=== PATIENT | female | born 1975 | race Caucasian/White ===

== ENCOUNTER 2016-10-23 17:27 | Emergency (ER) | payer OTHER, BC ==
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
[~2016-10-23 17:27] MED LIST: BIRTH CONTROL PILL; CALCIUM + VITAM1 TAB PO; CRANBERRY200 MG PO; DAILY VALUE1 EACH PO; LORTAB 7.5-5001 TAB PO; ORTHO TRI-7 DAYSX 3 PO; PHENERGAN25 MG PO
[2017-02-14] MEDS ORDERED: NEXIUM20 MG PO (11:17)
[2017-02-14] MEDS ORDERED: ZOFRAN8 MG PO (11:18)
[2017-02-14] MEDS ORDERED: HYDROCODON-ACE1 EAC7 PO (11:19)
[2017-02-14] MEDS ORDERED: TRINESSA LO TA1 EACH PO (11:19)
== END 2016-10-23 18:21 | disposition home or self-care (01) ==
LOC: SED 17:27
DX: S00.212A Abrasion of left eyelid and periocular area, initial encounter (principal); V49.40XA Driver injured in collision with unspecified motor vehicles in traffic accident, initial encounter; Y92.410 Unspecified street and highway as the place of occurrence of the external cause
CPT/HCPCS: 36415; 70450; 90471; 90715; 97602; 99284

== ENCOUNTER 2017-01-06 15:14 | Emergency (ER) | payer BC ==
--- NOTE | ~2017-01-06 | CT2 ---
[facility] A Service of [facility] RADIOLOGY TEXT RESULTS PATIENT: TIKA CUMMINGS LOCATION: [facility] : [birth year] UNIT #: [id number] AGE: [address]: Alyssa Rowland MD SEX: F ORDER DR: [id number] [facility] [address] [place], [place] [address] [id number] E MR#: [id number] Acc #: [id number] NAME: TIKA CUMMINGS : 1975 SEX: F STUDY DATE/TIME: 01/06/2017 17:27 UNIT: [facility] ROOM: STUDY DESCRIPTION: CT Abd and Pelv W Cont Attending Physician: Alyssa Rowland M.D. Ordering Physician: Alyssa Rowland M.D. Primary Care Physician: Luz Maria Mccoy M.D. MEDICAL IMAGING REPORT This report is preliminary unless electronic signature is present EXAM CT scan of the abdomen and pelvis with contrast, 01/06/2017 HISTORY Abdomen pain and dizziness for 4 days, epigastric pain. TECHNIQUE Spiral CT was performed through the abdomen and pelvis following intravenous contrast administration only as per clinician request. This CT exam was performed with one or more of the following radiation dose reduction techniques: automatic exposure control, adjustment of mA and/or kV according to patient size, and iterative reconstruction. FINDINGS ABDOMEN: The exam is limited by the lack of oral contrast. The liver, spleen, pancreas, gallbladder and biliary tree, adrenal glands and kidneys are normal. PELVIS FINDINGS: The gut, mesenteric and renetta structures are normal. There is minimal free fluid in the pelvis. The lung bases are normal. IMPRESSION Exam somewhat limited by the lack of oral contrast. Otherwise negative. Dictated by... Riley Barahona M.D. THIS IS AN ELECTRONICALLY VERIFIED REPORT Riley Barahona M.D. at 01/07/2017 10:38 AM CESIA/tim [facility] A Service of [facility] RADIOLOGY TEXT RESULTS PATIENT: TIKA CUMMINGS LOCATION: [facility] : [birth year] UNIT #: [id number] AGE: [address]: Alyssa Rowland MD SEX: F ORDER DR: TD: 01/07/2017 03:44 JOB #: [id number] MEDICAL IMAGING REPORT Page 1 of 1 COPY
[2017-01-06 15:39] LABS: BASOPHIL% 0.4 % (0-2.5); EOSINOPHIL# 0.1 X10e3 (0-0.7); EOSINOPHIL% 0.6 % (0.0-7.0); HEMATOCRIT 44.3 % (35.0-45.0); HEMOGLOBIN 14.6 gm/dL (12.0-16.0); LYMPHOCYTE# 2.7 X10e3 (1.0-3.5); LYMPHOCYTE% 25.6 % (17.0-45.0); MEAN CELL VOLUME 90.3 FL (83-96); MEAN CORPUSCULAR HEMOGLOBIN 29.7 PG (28-34); MEAN CORPUSCULAR HGB CONC 32.9 g/dL (30-36); MEAN PLATELET VOLUME 9.5 FL (6.5-11.5); MONOCYTE# 0.6 X10e3 (0-1.0); MONOCYTE% 6.1 % (3.0-12.0); NEUTROPHIL# 7.1 X10e3 (1.5-7.1); NEUTROPHIL% 67.3 % (40-75); PLATELET COUNT 298 X10e3 (140-420); RED CELL DISTRIBUTION WIDTH 12.9 % (11.0-15.5); WHITE BLOOD COUNT 10.6 X10e3 (4.0-10.5)
[2017-01-06 15:41] LABS: DIFF IND NO
[2017-01-06 15:52] LABS: URINE SOURCE CLEAN CATCH
[2017-01-06 16:03] LABS: URINE APPEARANCE CLEAR; URINE BILIRUBIN NEG (NEG); URINE BLOOD TRACE (NEG); URINE COLOR YELLOW; URINE GLUCOSE NEG (NEG); URINE KETONE TRACE (NEG); URINE LEUKOCYTE ESTERASE TRACE (NEG); URINE NITRATE NEG (NEG); URINE PH 5.5 (5-8); URINE PROTEIN NEG (NEG); URINE SPECIFIC GRAVITY 1.024 (1.003-1.035)
[2017-01-06 16:06] LABS: CULTURE INDICATED? YES; URINE BACTERIA AUWI 1+ (NEGATIVE); URINE SQUAMOUS EPITHELIAL CELL FEW /[HPF]
[2017-01-06 16:09] LABS: ALBUMIN SERUM 4.7 g/dL (3.5-5.0); BILIRUBIN, DIRECT 0.1 mg/dL (0.0-0.2); BILIRUBIN,INDIRECT 0.5 mg/dL (0.0-0.9); BILIRUBIN,TOTAL 0.6 mg/dL (0.2-2.0); BUN/CREATININE RATIO 11.11; CALCIUM SERUM 9.4 mg/dL (8.4-10.2); CREATININE SERUM 0.9 mg/dL (0.6-1.4); GLOM FILT RATE Estimated 80.6 mL/min (>60); POTASSIUM 3.1 mmol/L (3.5-5.1); PROTEIN TOTAL SERUM 8.5 g/dL (6.0-8.3)
[2017-02-14] MEDS ORDERED: NEXIUM20 MG PO (11:17)
[2017-02-14] MEDS ORDERED: ZOFRAN8 MG PO (11:18)
[2017-02-14] MEDS ORDERED: HYDROCODON-ACE1 EAC7 PO (11:19)
[2017-02-14] MEDS ORDERED: TRINESSA LO TA1 EACH PO (11:19)
== END 2017-01-06 20:22 | disposition home or self-care (01) ==
LOC: CED 15:14
PROVIDERS: Emergency Medicine
DX: K85.90 Acute pancreatitis without necrosis or infection, unspecified (principal); E87.6 Hypokalemia; Z90.49 Acquired absence of other specified parts of digestive tract
CPT/HCPCS: 36415; 74177; 80048; 80076; 81003; 82150; 83690; 84703; 85025; 87086; 96361; 96374; 99284; J2270; Q9967

== ENCOUNTER → 2017-01-17 | Outpatient (CLI) | payer BC ==
[~2017-01-17] MED LIST changes: +HYDROCODON-ACE1 EAC7 PO; +NEXIUM20 MG PO; +TRINESSA LO TA1 EACH PO; +ZOFRAN8 MG PO
--- NOTE | ~2017-01-17 | US6 ---
[facility] A Service of [facility] RADIOLOGY TEXT RESULTS PATIENT: TIKA CUMMINGS LOCATION: [facility] : 79 UNIT #: [id number] AGE: [address]: Luz Maria Mccoy MD SEX: F ORDER DR: [id number] [address] [address] [id number] O MR#: [id number] Acc #: [id number] NAME: TIKA CUMMINGS : 1975 SEX: F STUDY DATE/TIME: 01/17/2017 8:19 UNIT: [facility] ROOM: STUDY DESCRIPTION: US Abdominal Limited Attending Physician: Luz Maria Mccoy M.D. Referring Physician: Luz Maria Mccoy M.D. Ordering Physician: Luz Maria Mccoy M.D. Primary Care Physician: Luz Maria Mccoy M.D. MEDICAL IMAGING REPORT This report is preliminary unless electronic signature is present. EXAM Right quadrant ultrasound 01/17/2017 INDICATIONS Elevated lipase in a 41-year-old female. Right upper quadrant pain for 4 weeks, nausea for 4 weeks. Sonographic imaging right upper quadrant was performed. COMPARISON STUDIES Correlation is made with CT 01/06/2017 FINDINGS Visualized aspects of the pancreas are unremarkable. Survey images of the liver are unremarkable. No focal liver mass, ascites or intrahepatic ductal dilatation. Liver measures 15.3 cm long axis. The gallbladder is sonographically unremarkable. No sonographic Morales sign was described. Extrahepatic common bile duct measures approximately 2 mm. The right kidney is nonobstructed and measures 9.6 cm long axis. IMPRESSION Negative right upper quadrant. Dictated by... Jose Simpson M.D. THIS IS AN ELECTRONICALLY VERIFIED REPORT Jose Simpson M.D. at 01/20/2017 2:08 PM Jose Daniel TD: 01/17/2017 18:16 JOB #: [id number] [facility] A Service of [facility] RADIOLOGY TEXT RESULTS PATIENT: TIKA CUMMINGS LOCATION: [facility] : [birth year] UNIT #: [id number] AGE: [address]: Luz Maria Mccoy MD SEX: F ORDER DR: MEDICAL IMAGING REPORT Page 1 of 1
== END | disposition home or self-care (01) ==
LOC: SGUS 07:35
DX: R74.8 Abnormal levels of other serum enzymes (principal)
CPT/HCPCS: 76705

== ENCOUNTER → 2017-02-14 | Day surgery (SDC) | payer BC ==
--- NOTE | ~2017-02-14 | OR ---
Unit #: [id number] #: [id number] Patient: TIKA CUMMINGS [id number] [facility]. [place], [place] [address] [id number] O MR#: [id number] NAME: TIKA CUMMINGS ROOM: Date of Procedure: 02/14/2017 Admission Date: 02/14/2017 Surgeon: Abimael Saeed M.D. : 1975 Attending Physician: Abimael Saeed M.D. Referring Physician: Abimael Saeed M.D. Primary Care Physician: Luz Maria Mccoy M.D. OPERATIVE REPORT PREOPERATIVE DIAGNOSES Intense intermittent nausea, poor appetite and weight loss. PROCEDURES PERFORMED Upper gastrointestinal endoscopy. POSTOPERATIVE DIAGNOSES Completely normal examination up to third part of duodenum. The biopsy was obtained from the antrum for CLOtest. In addition, biopsies were also obtained from the deep descending duodenal folds to look for any evidence of partial villous atrophy or celiac disease. RECOMMENDATIONS The above findings do not explain patient's symptomatology. An outpatient gastric emptying study is being scheduled and she will be reviewed shortly thereafter in the office. SEDATION USED MAC. DESCRIPTION OF PROCEDURE Following detailed explanation of the potential risks and complications of an upper endoscopy, namely perforation, bleeding, and complications related to sedation, the patient was brought to GI lab and laid in the left lateral decubitus position. Lubricated tip of the Olympus video upper endoscope was passed through the bite block into the proximal esophagus under direct vision. The entire esophageal mucosa was examined and appeared normal. Z-line was nicely demarcated, there being no esophagitis or hiatus hernia. The scope was then advanced into the gastric cavity and the latter was insufflated. Mucosa of the fundus, body, and antrum examined and appeared unremarkable. Pylorus was intubated with visualization of the normal duodenal bulb and second and third part of the duodenum. Biopsies were obtained from the deep descending duodenal folds to look for any evidence of partial villous atrophy or celiac disease. Upon withdrawal and retroflexion, incisura, cardia, and greater curve were examined and no additional findings noted. A biopsy was obtained from the antrum for CLOtest. The scope was then withdrawn into the distal esophagus. The entire esophageal mucosa was examined all the way up to pharynx. No additional findings noted. The patient tolerated the procedure without any postprocedure complications. Unit #: [id number] #: [id number] Patient: TIKA CUMMINGS Dictated by... Kenneth Bentley/mitch TD: 02/15/2017 00:41 JOB #: [id number] CC: Luz Maria Mccoy M.D. OPERATIVE REPORT Page 1 of 1 X Abimael Saeed MD X PROCEDURE OPERATIVE NOTE
[2017-02-14 12:06] LABS: ALBUMIN SERUM 4.3 g/dL (3.5-5.0); BILIRUBIN,TOTAL 0.4 mg/dL (0.2-2.0); CALCIUM SERUM 9.3 mg/dL (8.4-10.2); CREATININE SERUM 0.9 mg/dL (0.6-1.4); GLOM FILT RATE Estimated 80.6 mL/min (>60); PROTEIN TOTAL SERUM 7.9 g/dL (6.0-8.3)
[2017-02-14 12:55] LABS: BASOPHIL# 0.1 X10e3 (0-0.3); BASOPHIL% 0.8 % (0-2.5); EOSINOPHIL# 0.1 X10e3 (0-0.7); EOSINOPHIL% 1.6 % (0.0-7.0); HEMATOCRIT 40.4 % (35.0-45.0); HEMOGLOBIN 13.4 gm/dL (12.0-16.0); LYMPHOCYTE# 2.1 X10e3 (1.0-3.5); LYMPHOCYTE% 32.1 % (17.0-45.0); MEAN CELL VOLUME 90.6 FL (83-96); MEAN CORPUSCULAR HEMOGLOBIN 30.2 PG (28-34); MEAN CORPUSCULAR HGB CONC 33.3 g/dL (30-36); MEAN PLATELET VOLUME 9.3 FL (6.5-11.5); MONOCYTE# 0.5 X10e3 (0-1.0); MONOCYTE% 7.7 % (3.0-12.0); NEUTROPHIL# 3.7 X10e3 (1.5-7.1); NEUTROPHIL% 57.8 % (40-75); PLATELET COUNT 249 X10e3 (140-420); RED BLOOD COUNT 4.45 X10e (3.90-5.30); RED CELL DISTRIBUTION WIDTH 12.5 % (11.0-15.5); WHITE BLOOD COUNT 6.4 X10e3 (4.0-10.5)
[2017-02-14 12:56] LABS: DIFF IND NO
== END | disposition home or self-care (01) ==
LOC: COPS 10:15
PROVIDERS: Internal Medicine Gastroenterology
DX: K29.80 Duodenitis without bleeding (principal); K21.9 Gastro-esophageal reflux disease without esophagitis; Z98.890 Other specified postprocedural states; Z79.899 Other long term (current) drug therapy; Z79.891 Long term (current) use of opiate analgesic; Z79.3 Long term (current) use of hormonal contraceptives
CPT/HCPCS: 80053; 82150; 84703; 85025; 87077; 88305; J2250

== ENCOUNTER → 2017-02-21 | Outpatient (CLI) | payer BC ==
--- NOTE | ~2017-02-21 | NM19 ---
[facility] A Service of [facility] RADIOLOGY TEXT RESULTS PATIENT: TIKA CUMMINGS LOCATION: [facility] : [birth year] UNIT #: [id number] AGE: [address]: Abimael Saeed MD SEX: F ORDER DR: [id number] [facility] [address] [place], [place] [address] [id number] O MR#: [id number] Acc #: [id number] NAME: TIKA CUMMINGS. : 1975 SEX: F STUDY DATE/TIME: 02/21/2017 7:24 UNIT: [facility] ROOM: STUDY DESCRIPTION: [place] Gastric Emptying Study Attending Physician: Abimael Saeed M.D. Referring Physician: Abimael Saeed M.D. Ordering Physician: Abimael Saeed M.D. Primary Care Physician: Luz Maria Mccoy M.D. MEDICAL IMAGING REPORT This report is preliminary unless electronic signature is present EXAM Gastric emptying scan, 02/21/2017 HISTORY Abdominal bloating and early satiety and nausea, epigastric pain and pressure radiating to the back since December 2016. FINDINGS Patient ingested 544 mcCi of technetium 99m tagged sulfur colloid in eggs. Images of the upper abdomen were obtained for 4 hours. After 1 hour the stomach was 25% empty, after 2 hours the stomach was 61% empty and after 4-hour the stomach was 99% empty. Normal range is greater than 60% empty after 2 hours of imaging and greater than 90% empty after 4 hours of imaging. IMPRESSION Normal gastric emptying after 2 and 4 hours of imaging. Dictated by... Riley Barahona M.D. THIS IS AN ELECTRONICALLY VERIFIED REPORT Riley Barahona M.D. at 02/21/2017 5:07 PM Jigar TD: 02/21/2017 14:16 JOB #: [id number] MEDICAL IMAGING REPORT Page 1 of 1 COPY
== END | disposition home or self-care (01) ==
LOC: CNUC 06:36
DX: R14.0 Abdominal distension (gaseous) (principal); R11.0 Nausea; R68.81 Early satiety
CPT/HCPCS: 78264; A9541

== ENCOUNTER → 2017-02-24 | Outpatient (CLI) | payer BC ==
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
[2017-02-24 10:25] LABS: POC - CREATININE 0.87 mg/dL (0.44-1.03); POC - GFR >60.0 mL/min (>60)
== END | disposition home or self-care (01) ==
LOC: SCT 09:17
PROVIDERS: Nurse Practitioner
DX: R10.13 Epigastric pain (principal); Z90.49 Acquired absence of other specified parts of digestive tract
CPT/HCPCS: 74160; 82565; Q9967